=== PATIENT | female | born 1975 | race Caucasian/White ===

== ENCOUNTER 2016-10-15 01:33 | Emergency (ER) | payer MEDICAID ==
[~2016-10-15] VITALS: Ht 162.6 cm; Wt 75.3 kg
[~2016-10-15 01:33] MED LIST: BENZ2TAB6 PO; DIVA500T4 PO; GLIP5TAB10 PO; HALO100A3 INJ; HALO5TAB5 PO; LISI1POW PO; METF100010 PO; SIMV5TAB5 PO
[2016-10-15 01:34] VITALS: BP 143/82
== END 2016-10-15 02:22 | disposition home or self-care (01) ==
LOC: ED 02:03
DX: L03.113 Cellulitis of right upper limb (principal); F15.19 Other stimulant abuse with unspecified stimulant-induced disorder; F20.9 Schizophrenia, unspecified; F31.9 Bipolar disorder, unspecified
CPT/HCPCS: 99283

== ENCOUNTER 2017-12-19 12:03 | Emergency (ER) | payer MEDICAID ==
[~2017-12-19] VITALS: Ht 165.1 cm; Wt 78.6 kg
[2017-12-19 13:44] LABS: HCG UR SG 1.018 (1.003-1.030)
[2017-12-19 13:51] LABS: MICROSCOPIC INDICATED
[2017-12-19 13:52] LABS: CULTURE INDICATED? YES
[2017-12-19 15:21] VITALS: BP 128/72
== END 2017-12-19 15:23 | disposition home or self-care (01) ==
LOC: ED 13:41
DX: S30.23XA Contusion of vagina and vulva, initial encounter (principal); R31.0 Gross hematuria; X58.XXXA Exposure to other specified factors, initial encounter; Y93.89 Activity, other specified; Y92.89 Other specified places as the place of occurrence of the external cause; Y99.8 Other external cause status
CPT/HCPCS: 72192; 81001; 81025; 87086; 99285

== ENCOUNTER 2019-07-02 20:35 | Emergency (ER) | payer MEDICAID ==
[~2019-07-02] VITALS: Ht 167.6 cm; Wt 75.4 kg
[~2019-07-02 20:35] MED LIST changes: +SIMV5TAB14 PO; -SIMV5TAB5 PO
[2019-07-02 20:44] VITALS: BP 175/105
[2019-07-02] MEDS ORDERED: AZITHROMYCIN 500 MG TABLET PO ONE (21:30)
[2019-07-02 21:41] LABS: MICROSCOPIC INDICATED
[2019-07-02] MEDS ORDERED: CEFTRIAXONE 250 MG ONE (21:49)
[2019-07-02] MEDS ORDERED: AZITHROMYCIN 500 MG TABLET ONE (21:49)
[2019-07-02] MEDS ORDERED: CEFTRIAXONE 250 MG IM ONE (22:00)
== END 2019-07-02 22:18 | disposition home or self-care (01) ==
LOC: ED 22:15
DX: A51.0 Primary genital syphilis (principal); F15.10 Other stimulant abuse, uncomplicated; R10.2 Pelvic and perineal pain; Z88.0 Allergy status to penicillin
CPT/HCPCS: 36415; 81001; 86592; 87086; 96372; 99283; J0696; 86780

== ENCOUNTER 2019-08-07 22:17 | Emergency (ER) | payer MEDICAID ==
[~2019-08-07] VITALS: Ht 167.6 cm; Wt 79.7 kg
--- NOTE | 2019-08-07 23:30 | NUR ---
Pt to rm from lobby. Care assumed. ERP at bedside to eval.
--- NOTE | 2019-08-07 23:55 | NUR ---
Pt resting with no s/s of acute distress. Pt c/o intermittent SOB and chills for "months". States worse recently. VSS. Call light in reach.
--- NOTE | 2019-08-08 | NUR ---
PT IN RAD AT THIS TIME.
[2019-08-08 01:28] VITALS: BP 140/59
== END 2019-08-08 01:42 | disposition home or self-care (01) ==
LOC: ED 08-08 01:33
DX: J20.9 Acute bronchitis, unspecified (principal); Z20.828 Contact with and (suspected) exposure to other viral communicable diseases; R06.00 Dyspnea, unspecified; R05 Cough; F17.210 Nicotine dependence, cigarettes, uncomplicated; Z72.9 Problem related to lifestyle, unspecified
CPT/HCPCS: 71046; 99284; 99406; U0001

== ENCOUNTER 2020-03-21 05:35 | Emergency (ER) | payer MEDICAID ==
[~2020-03-21] VITALS: Ht 170.2 cm; Wt 83.9 kg
[2020-03-21 05:54] VITALS: BP 124/85
== END 2020-03-21 06:23 | disposition home or self-care (01) ==
LOC: ED 06:00
DX: H10.023 Other mucopurulent conjunctivitis, bilateral (principal)
CPT/HCPCS: 99283